=== PATIENT | female | born 1985 | race Caucasian/White ===

== ENCOUNTER 2017-05-25 21:20 | Emergency (ER) | payer OTHER ==
[~2017-05-25] VITALS: Ht 157.5 cm; Wt 74.9 kg
[~2017-05-25 21:20] MED LIST: CHOLTAB11 PO; LEVO88CA2 PO; LIOT5TAB PO; TOPI25TA10 PO
[2017-05-25 21:24] VITALS: TEMP 37.1; Ht 157.5 cm; Wt 74.9 kg
[2017-05-25 22:21] LABS: BASO % 0.2 %; BASO ABS # 0.02 K/uL (0-0.2); EOS % 0.3 %; EOS ABS # 0.04 K/uL (0-0.5); IG# 0.03 K/uL (0.00-0.02); LYMPH ABS # 2.84 K/uL (1.2-3.4); MEAN CELL VOLUME 88.9 fL (80-100); MEAN CORPUSCULAR HEMOGLOBIN 31.1 pg (25-34); MEAN PLATELET VOLUME 9.4 fL (7.4-10.4); MONO % 6.5 %; NEUT % 69.8 %; PLATELET COUNT 273 K/uL (130-400); RED CELL DISTRIBUTION WIDTH SD 41.7 fL (36.4-46.3); WHITE BLOOD COUNT 12.33 K/uL (4.8-10.8)
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
[2017-05-25 22:45] LABS: ALBUMIN 3.8 gm/dl (3.4-5.0); CALCIUM 8.8 mg/dl (8.5-10.1); CREATININE 0.87 mg/dl (0.60-1.20); POTASSIUM 3.4 mmol/L (3.5-5.1)
[2017-05-25 22:56] LABS: TOTAL PROTEIN 7.6 gm/dl (6.4-8.2)
[2017-05-25] MEDS ORDERED: SERT50TA PO (23:26)
[2017-05-25] MEDS ORDERED: LEVO1IUD2 INT UTER (23:31)
[2017-05-26 03:26] VITALS: BP 131/95; PULSE 101; O2SAT 98
== END 2017-05-26 03:26 ==
LOC: C.EDB 21:22 → C.EDA 05-26 03:26
DX: F41.9 Anxiety disorder, unspecified (principal); F32.9 Major depressive disorder, single episode, unspecified; E06.3 Autoimmune thyroiditis; Z88.0 Allergy status to penicillin; Z88.1 Allergy status to other antibiotic agents; Z88.2 Allergy status to sulfonamides; Z88.8 Allergy status to other drugs, medicaments and biological substances